=== PATIENT | male | born 1980 | race American Indian/Alaskan Native ===

== ENCOUNTER 2021-08-26 08:39 | Emergency (ER) | payer SELFPAY ==
[2021-08-26] MEDS ORDERED: diphenhydrAMINE 25 MG CAP PO ONE (08:48)
[2021-08-26] MEDS ORDERED: FAMOTIDINE 20 MG TAB PO ONE (08:48)
[2021-08-26] MEDS ORDERED: methylPREDNISolone Sod Succinate 125 MG/2 ML INJ IM ONE (08:48)
--- NOTE | 2021-08-26 08:49 | Emergency Department Report ---
HPI - General Chief Complaint: Allergic Reaction Time Seen by Provider: 08/26/21 08:48 - HPI HPI: 41 year old male with pmhx of HIV presents to ED with complaints of allergic reaction/rash. Patient states he started with pruritic rash yesterday and she has been getting worse. Its a diffuse rash which he describes as pruritic he is concerned he may be having allergic reaction. He is unclear of what the trigger could have been. He denies any new or change in medications, foods, lotions, deodorants or any other new contacts. He states that he took Benadryl yesterday but did not help much. He reports no swelling, tongue or throat swelling, chest pain, shortness of breath, cough or wheezing or any additional symptoms. He denies similar symptoms in the past. He states that he has no known allergies to anything. He states he has been compliant with antiretro virals and his viral load is undetectable. ED Past Medical Hx - Medications Home Medications: Home Medications Medication Instructions Recorded Confirmed Last Taken Type Famotidine [Pepcid] 20 mg PO BID #10 tablet 08/26/21 Unknown Rx diphenhydrAMINE [Benadryl CAP] 25 - 50 mg PO Q6HR PRN #30 capsule 08/26/21 Unknown Rx predniSONE [Deltasone] 60 mg PO QDAY #12 tab 08/26/21 Unknown Rx ED Review of Systems ROS: Stated complaint: ALLERGIC REACTION Other details as noted in HPI Comment: All other systems reviewed and negative ENT: denies: ear pain, throat pain Respiratory: denies: cough, shortness of breath, wheezing Cardiovascular: denies: chest pain, palpitations Skin: rash, pruritus Neurological: denies: headache, weakness, numbness, paresthesias, confusion, abnormal gait, vertigo Psychiatric: denies: anxiety, depression, auditory hallucinations, visual hallucinations, homicidal thoughts, suicidal thoughts Hematological/Lymphatic: denies: easy bleeding, easy bruising, swollen glands ED Medical Decision Making - Medical Decision Making [id number]: Patient currently resting comfortably. He is well-appearing. Not toxic. He is not in any significant pain or respiratory distress. He has no tongue or throat or facial swelling no lower extremity swelling. Chest is clear to auscultation. His vital signs are stable. Patient will be discharged home with prescription for steroids as well as Benadryl and Pepcid to continue taking for another few more days. Did recommend follow-up with his ID specialist as well as a sheeter operator especially if this becomes a recurrent issue. Patient expressed understanding agree with plan. Patient was stable at time of discharge. Critical care attestation.: If time is entered above; I have spent that time in minutes in the direct care of this critically ill patient, excluding procedure time. ED Disposition Clinical Impression: Urticarial rash Disposition: 01 HOME / SELF CARE / HOMELESS Is pt being admited?: No Does the pt Need Aspirin: No Condition: Stable Instructions: Anettees, [id number] Additional Instructions: I recommend that you continue taking the prednisone as prescribed starting tomorrow. Continue taking Benadryl every 6 hours as needed to help with itching and also continue taking the Pepcid as prescribed for the next 5 days. I do recommend close follow-up with your ID specialist but also an sheeter operator alex londono if this becomes a recurrent problem. Return to the ER if your symptoms worsens or changes in any way peer Prescriptions: diphenhydrAMINE [Benadryl CAP] 25 - 50 mg PO Q6HR PRN #30 capsule PRN Reason: Itching predniSONE [Deltasone] 60 mg PO QDAY #12 tab Famotidine [Pepcid] 20 mg PO BID #10 tablet Referrals: PRIMARY CARE,MD [Primary Care Provider] - 3-5 Days Forms: Work/School Release Form(ED) Time of Disposition: 09:40 ED Physical Exam - General Limitations: No Limitations General appearance: alert, in no apparent distress, anxious - Head Head exam: Present: atraumatic, normocephalic, normal inspection - ENT ENT exam: Present: normal exam, mucous membranes moist - Neck Neck exam: Present: normal inspection, full ROM. Absent: tenderness, meningismus - Respiratory Respiratory exam: Absent: respiratory distress - Cardiovascular Cardiovascular Exam: Present: regular rate, normal rhythm, normal heart sounds - Neurological Exam Neurological exam: Present: alert, oriented X3, CN II-XII intact, normal gait - Skin Skin exam: Present: urticaria, other (diffuse erythematous maculopapular urticarial appearing rash noted diffusely to face, neck, chest, arms, back )
[2021-08-26 09:53] VITALS: BP 134/101
== END 2021-08-26 09:55 | disposition home or self-care (01) ==
LOC: ED 08:39
DX: L50.9 Urticaria, unspecified (principal)
CPT/HCPCS: 96372; 99282; J2930